=== PATIENT | female | born 1990 | race Caucasian/White ===

== ENCOUNTER 2019-06-09 22:13 | Emergency (ER) | payer OTHER ==
[~2019-06-09] VITALS: Ht 162.6 cm; Wt 86.2 kg
[2019-06-09] MEDS ORDERED: CELEXA 10 MG TA10 M1 PO (22:32)
[2019-06-09] MEDS ORDERED: BELBUCA150 MCG PO (22:32)
[2019-06-09] MEDS ORDERED: OXTELLAR XR150 MG PO (22:32)
[2019-06-09] MEDS ORDERED: XANAX1 MG PO (22:32)
[2019-06-09 23:56] VITALS: BP 120/60
== END 2019-06-09 23:56 | disposition home or self-care (01) ==
LOC: M.ERS 22:13
DX: S10.86XA Insect bite of other specified part of neck, initial encounter (principal); F17.210 Nicotine dependence, cigarettes, uncomplicated; Z88.8 Allergy status to other drugs, medicaments and biological substances; W57.XXXA Bitten or stung by nonvenomous insect and other nonvenomous arthropods, initial encounter; Y93.89 Activity, other specified; Y92.89 Other specified places as the place of occurrence of the external cause; Y99.8 Other external cause status